=== PATIENT | male | born 1970 | race Caucasian/White ===

== ENCOUNTER → 2017-07-17 | Emergency (ER) | payer SELFPAY ==
[~2017-07-17] MED LIST: ASPIRIN TABLET 325 MG TAB ONE; ASPIRIN TABLET 325 MG TAB PO ONE; NITROGLYCERIN 0.4 MG 25 EA TAB SL ONE; ONDANSETRON INJ 4 MG/2 ML VIAL IV ONE; ONDANSETRON INJ 4 MG/2 ML VIAL ONE; SODIUM CHLORIDE 0.9% (FLUSH) 10 ML SYG IV PRN
--- NOTE | 2017-07-17 09:06 | RAD ---
EXAM DESCRIPTION: Chest,1 View CLINICAL HISTORY: Chest pain FINDINGS/ IMPRESSION: Normal cardiomediastinal silhouette. No edema, infiltrate or effusion. No pneumothorax No diagnostic acute bony abnormality Electronically signed by: Aly Glez MD 07/17/2017 9:04 AM CDT
[2017-07-17 09:27] VITALS: TEMP 98.1
--- NOTE | 2017-07-17 10:11 | ED.PDOC ---
History of Present Illness - General Chief Complaint: Cardiovascular Problem Stated Complaint: chest pain Time Seen by Provider: 07/17/17 09:26 Additional Information: 46 YEAR OLD WHITE MALE COMPLAINTS OF PAIN IN THE RETROSTERNUM SINCE LAST EVENING ASSOCIATED WITH NAUSEA HE HAS HAD SIMILAR PAINS ON AND OFF HE THOUGHT IT WAS HEART BURN HE HAS VERY STRONG FAMILY HISTORY OF CAD HIS FATHER AT AGE 48 HIS 2 BROTHERS HAVE HAD CABG AND STENTS - History of Present Illness Timing/Duration: 4-6 hours Improving Factors: nothing Worsening Factors: nothing Associated Symptoms: denies symptoms Allergies/Adverse Reactions: Allergies NO KNOWN ALLERGY Allergy (Verified 07/17/17 08:51) Review of Systems - Review of Systems Constitutional: States: no symptoms reported EENTM: States: no symptoms reported Respiratory: States: no symptoms reported Cardiology: States: see HPI Gastrointestinal/Abdominal: States: no symptoms reported Genitourinary: States: no symptoms reported Musculoskeletal: States: no symptoms reported Skin: States: no symptoms reported Neurological: States: no symptoms reported Endocrine: States: no symptoms reported Hematologic/Lymphatic: States: no symptoms reported Past Medical History (General) - Patient Medical History Hx Stroke: No Hx Asthma: No Hx Cardiac Disorders: No Hx Congestive Heart Failure: No Hx Diabetes: No Hx Cancer: No Hx Hepatitis C: No - Vaccination History Hx Tetanus, Diphtheria Vaccination: No Hx Influenza Vaccination: No - Social History Hx Tobacco Use: Yes Hx Chewing Tobacco Use: No Hx Alcohol Use: Yes - Occas Hx Substance Use: No Hx Substance Use Treatment: No Hx Depression: No Feels Threatened In Home Enviroment: No Feels Threatened In a Relationship: No Hx Physical Abuse: No Hx Emotional Abuse: No Hx Suspected Abuse: No Family Medical History - Family History Father Cause of : Cardiac Hx Cardiac Disease: Yes Physical Exam - Physical Exam General Appearance: Comfortable Eye Exam: bilateral normal Ears, Nose, Throat: hearing grossly normal, normal ENT inspection, normal pharynx Neck: non-tender, full range of motion, supple Respiratory: chest non-tender, lungs clear, normal breath sounds, no respiratory distress, no accessory muscle use Cardiovascular/Chest: normal peripheral pulses, regular rate, rhythm, no edema, no gallop, no JVD, no murmur Peripheral Pulses: radial,right: 2+, radial,left: 2+, femoral,right: 2+, femoral ,left: 2+ Gastrointestinal/Abdominal: normal bowel sounds, non tender, soft, no organomegaly, no pulsatile mass Back Exam: normal inspection, no CVA tenderness Extremity: normal range of motion, non-tender, normal inspection 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 Copy, Patient Portal Self Enrollment Additional Instructions: THOUGH PATIENT SIGNED OUT AMA HE WAS STRONGLY RECOMMENDED TO SEE A SUPERVISOR COLD ROLLING SOON
[2017-07-17 10:17] VITALS: BP 131/92; O2SAT 98
== END | disposition left against medical advice (07) ==
LOC: ER 08:36
DX: R07.9 Chest pain, unspecified (principal); Z82.49 Family history of ischemic heart disease and other diseases of the circulatory system; Z87.891 Personal history of nicotine dependence